=== PATIENT | male | born 1945 | race Caucasian/White ===

== ENCOUNTER 2017-03-26 07:26 | Outpatient (CLI) | payer MEDICARE ==
[2017-03-26 10:19] LABS: BASOPHILS % (AUTO) 0.6 %; EOSINOPHILS # (AUTO) 0.2 10^3/uL (0.0-0.7); EOSINOPHILS % (AUTO) 5.5 %; HCT - HEMATOCRIT 38.1 % (42.0-52.0); HGB - HEMOGLOBIN 12.8 g/dL (14.0-18.0); LYMPHOCYTES # (AUTO) 1.5 10^3/uL (1.5-3.5); LYMPHOCYTES % (AUTO) 36.6 %; MEAN CORPUSCULAR HEMOGLOBIN 32.7 pg (27.0-31.0); MEAN CORPUSCULAR HGB CONC 33.7 g/dL (32.0-36.0); MEAN CORPUSCULAR VOLUME 97.2 fL (80.0-94.0); MEAN PLATELET VOLUME 7.8 fL (7.4-11.4); MONOCYTES # (AUTO) 0.6 10^3/uL (0.0-1.0); MONOCYTES % (AUTO) 14.4 %; NEUTROPHILS # (AUTO) 1.7 10^3/uL (1.5-6.6); NEUTROPHILS % (AUTO) 42.9 %; RED BLOOD COUNT 3.92 10^6/uL (4.70-6.10); RED CELL DISTRIBUTION WIDTH 13.4 % (12.0-15.0)
[2017-03-26 10:39] LABS: CHOL/HDL RATIO 5.8 (<5.0); CHOLESTEROL 306 mg/dL; HDL CHOLESTEROL 53 mg/dL; LDL/HDL RATIO 4.4 (<3.6); TRIGLYCERIDES 88 mg/dL; VLDL CHOLESTEROL 18 mg/dL
== END 2017-03-26 07:27 | disposition home or self-care (01) ==
LOC: LAB.F 07:26
PROVIDERS: ATTEND Internal Medicine
DX: E78.2 Mixed hyperlipidemia (principal); Z79.899 Other long term (current) drug therapy
CPT/HCPCS: 36415; 80061; 85025

== ENCOUNTER 2017-04-24 07:04 | Outpatient (CLI) | payer MEDICARE ==
[2017-04-24 12:24] VITALS: BP 152/82
--- NOTE | 2017-04-26 07:20 | CARDIAC PROCEDURE NOTE ---
DATE OF SERVICE: INDICATION: A 71-year-old male with known coronary artery disease many years post PTCA. Intolerant to statins. PROCEDURE: The patient was exercised in the standard fashion for about 3 minutes beyond predicted anita e. He experienced fatigue and dyspnea, but no chest, neck, arm, or jaw pain. He had no diagnostic ST or T wave changes. He did have a slight increase in the number of PVCs during exercise and he had 1 v entricular couplet, but no complex ectopy was noted. His blood pressure response was fairly flat duri ng exercise and then rebounded with somewhat hypertensive pressure early in recovery. He had heart re sponse to just shy of 85% maximum predicted heart rate and had an extremely rapid recovery within 15- 30 seconds. IMPRESSION: Non-diagnostic treadmill performed for left ventricular echocardiographic imaging. See ca rdiology interpretation for details. JOB #: [id number] EXT JOB #:[id number]
== END 2017-04-24 07:05 | disposition home or self-care (01) ==
LOC: DI 07:04
PROVIDERS: ATTEND Internal Medicine
DX: I25.10 Atherosclerotic heart disease of native coronary artery without angina pectoris (principal); I47.1 Supraventricular tachycardia; Z98.61 Coronary angioplasty status
CPT/HCPCS: 93350

== ENCOUNTER 2018-05-02 07:32 | Outpatient (CLI) | payer MEDICARE ==
[2018-05-02 11:29] LABS: BASOPHILS % (AUTO) 0.6 %; EOSINOPHILS # (AUTO) 0.3 10^3/uL (0.0-0.7); HGB - HEMOGLOBIN 13.3 g/dL (14.0-18.0); LYMPHOCYTES # (AUTO) 1.6 10^3/uL (1.5-3.5); LYMPHOCYTES % (AUTO) 30.5 %; MEAN CORPUSCULAR HEMOGLOBIN 33.1 pg (27.0-31.0); MEAN CORPUSCULAR HGB CONC 34.1 g/dL (32.0-36.0); MEAN CORPUSCULAR VOLUME 97.1 fL (80.0-94.0); MEAN PLATELET VOLUME 7.8 fL (7.4-11.4); MONOCYTES # (AUTO) 0.6 10^3/uL (0.0-1.0); MONOCYTES % (AUTO) 11.6 %; NEUTROPHILS # (AUTO) 2.6 10^3/uL (1.5-6.6); NEUTROPHILS % (AUTO) 51.3 %; PLT - PLATELET COUNT 212 10^3/uL (130-450); RED BLOOD COUNT 4.01 10^6/uL (4.70-6.10); RED CELL DISTRIBUTION WIDTH 13.4 % (12.0-15.0); WHITE BLOOD COUNT 5.2 x10^3/uL (4.8-10.8)
[2018-05-02 11:43] LABS: ALBUMIN 3.7 g/dL (3.2-5.5); ALBUMIN/GLOBULIN RATIO 1.1 (1.0-2.2); ALKALINE PHOSPHATASE 64 IU/L (42-121); ALT ALANINE AMINOTRANSFERASE 19 IU/L (10-60); AST ASPARTATE AMINOTRANSFERASE 21 IU/L (10-42); BILIRUBIN,TOTAL 0.9 mg/dL (0.2-1.0); BUN - BLOOD UREA NITROGEN 29 mg/dL (6-20); CARBON DIOXIDE - CO2 25 mmol/L (21-32); CHLORIDE 106 mmol/L (101-111); CHOL/HDL RATIO 6.5 (<5.0); CHOLESTEROL 314 mg/dL; CREATININE 1.3 mg/dL (0.6-1.2); GFR - MDRD 54 (>89); GLUCOSE 103 mg/dL (70-100); HDL CHOLESTEROL 48 mg/dL; LDL CHOLESTEROL,CALCULATED 244 mg/dL; LDL/HDL RATIO 5.1 (<3.6); SODIUM 137 mmol/L (135-145); VLDL CHOLESTEROL 22 mg/dL
== END 2018-05-02 07:33 | disposition home or self-care (01) ==
LOC: LAB.F 07:32
PROVIDERS: ATTEND Internal Medicine
DX: Z00.00 Encounter for general adult medical examination without abnormal findings (principal); D63.1 Anemia in chronic kidney disease; N18.9 Chronic kidney disease, unspecified; I25.10 Atherosclerotic heart disease of native coronary artery without angina pectoris; E78.5 Hyperlipidemia, unspecified
CPT/HCPCS: 36415; 80053; 80061; 83721; 84153; 85025

== ENCOUNTER 2019-08-11 09:55 | Outpatient (CLI) | payer MEDICARE ==
[2019-08-11 10:16] LABS: BASOPHILS % (AUTO) 0.5 %; EOSINOPHILS # (AUTO) 0.2 10^3/uL (0.0-0.7); EOSINOPHILS % (AUTO) 3.9 %; HGB - HEMOGLOBIN 13.4 g/dL (14.0-18.0); LYMPHOCYTES # (AUTO) 1.4 10^3/uL (1.5-3.5); LYMPHOCYTES % (AUTO) 31.8 %; MEAN CORPUSCULAR HEMOGLOBIN 31.8 pg (27.0-31.0); MEAN CORPUSCULAR HGB CONC 32.7 g/dL (32.0-36.0); MEAN CORPUSCULAR VOLUME 97.2 fL (80.0-94.0); MONOCYTES # (AUTO) 0.6 10^3/uL (0.0-1.0); MONOCYTES % (AUTO) 12.6 %; NEUTROPHILS # (AUTO) 2.2 10^3/uL (1.5-6.6); PLT - PLATELET COUNT 194 10^3/uL (130-450); RED BLOOD COUNT 4.22 10^6/uL (4.70-6.10); RED CELL DISTRIBUTION WIDTH 12.8 % (12.0-15.0); WHITE BLOOD COUNT 4.4 x10^3/uL (4.8-10.8)
[2019-08-11 10:30] LABS: CALCIUM 9.4 mg/dL (8.5-10.3); CREATININE 1.2 mg/dL (0.6-1.2)
== END 2019-08-11 09:56 | disposition home or self-care (01) ==
LOC: LAB 09:55
PROVIDERS: ATTEND Registered Nurse
DX: Z01.818 Encounter for other preprocedural examination (principal); I25.10 Atherosclerotic heart disease of native coronary artery without angina pectoris; G47.30 Sleep apnea, unspecified
CPT/HCPCS: 36415; 80048; 85025; 93005

== ENCOUNTER 2019-08-12 12:12 | Day surgery (SDC) | payer MEDICARE ==
[2019-08-12] MEDS ORDERED: LACTATED RINGERS 1,000 ML IV ONE ×2 (12:21→14:46)
--- NOTE | 2019-08-12 12:53 | ANESTHESIA ---
Pre-Anesthesia VS, & Labs - Diagnosis umblical hernia - Procedure umblical hernia repair Vital Signs: Temp Pulse Resp BP Pulse Ox 36 C L 64 16 149/68 H 99 08/12/19 12:21 08/12/19 12:21 08/12/19 12:21 08/12/19 12:21 08/12/19 12:21 Height 6 ft 4 in Weight (kg) 100.9 kg Home Medications and Allergies Home Medications: Ambulatory Orders Aspirin [Aspirin EC] 81 mg PO DAILY 08/06/19 Multivitamin [Daily Multiple Vitamin] 1 each PO BID 08/06/19 Nitroglycerin [Nitrostat] 0.4 mg SL Q5MIN PRN 08/06/19 Rosuvastatin Calcium 5 mg PO DAILY 08/06/19 Turmeric Root Extract [Turmeric] 500 mg PO DAILY 08/06/19 Vitamin B Complex 1 each PO DAILY 08/06/19 Aspirin [Aspirin EC] 81 mg PO DAILY 08/06/19 Multivitamin [Daily Multiple Vitamin] 1 each PO BID 08/06/19 Nitroglycerin [Nitrostat] 0.4 mg SL Q5MIN PRN 08/06/19 Rosuvastatin Calcium 5 mg PO DAILY 08/06/19 Turmeric Root Extract [Turmeric] 500 mg PO DAILY 08/06/19 Vitamin B Complex 1 each PO DAILY 08/06/19 Allergies/Adverse Reactions: Allergies Allergy/AdvReac Type Severity Reaction Status Date / Time No Known Drug Allergies Allergy Verified 08/06/19 15:13 Anes History & Medical History - Anesthetic History Anesthesia Complications: reports: No previous complications Family history of Anesthesia Complications: Denies Family history of Malignant Hyperthermia: Denies - Medical History Cardiovascular: reports: High cholesterol, Coronary artery disease Pulmonary: reports: Sleep apnea, CPAP use Gastrointestinal: reports: GERD Urinary: reports: None Neuro: reports: None Musculoskeletal: reports: None Endocrine/Autoimmune: reports: None Blood Disorders: reports: None Skin: reports: None Smoking Status: Never smoker Psychosocial: reports: No issues indicated - Surgical History General: Colonoscopy Eyes Ears Nose Throat (EENT): Tonsil/Adenoidectomy Cardiothoracic: Angioplasty (angioplasty 1987) Orthopedic: Shoulder arthroplasty Exam General: Alert, Oriented x3, Cooperative, No acute distress Dental: WNL Mouth Openin Fingerbreadth Neck Mobility: Normal Mallampati classification: II Thyromental Distance: 4-6 cm Respiratory: Lungs clear, Normal breath sounds, No respiratory distress, No accessory muscle use Cardiovascular: Regular rate, Normal S1, Normal S2, No murmurs Abdomen: Normal bowel sounds, Soft, No tenderness, No hepatospenomegaly, No masses Extremities: No clubbing, No cyanosis, No edema, Normal pulses, No tenderness/swelling Neurological: Normal gait, Normal speech, Strength at 5/5 X4 ext, Normal tone, Sensation intact, Cranial nerves 3-12 NL, Reflexes 2+ Cognitive Status: Within normal limits Plan Anesthesia Type: General Consent for Procedure(s) Verified and Reviewed: Yes Code Status: Attempt Resuscitation ASA classification: 2-Mild systemic disease Is this case an emergency?: No
[2019-08-12] MEDS ORDERED: ceFAZolin 1 GM VIAL ONE (13:12)
[2019-08-12] MEDS ORDERED: SODIUM CHLORIDE 0.9% 10 ML ONE (13:12)
[2019-08-12] MEDS ORDERED: LIDOCAINE MPF 1%-EPI 1:200000 30 ML VIAL ONE (13:13)
[2019-08-12] MEDS ORDERED: BUPIVACAINE 0.5% PF 30 ML VIAL ONE (13:13)
[2019-08-12] MEDS ORDERED: LIDOCAINE 1%-EPI 1:100000 30 ML MDV SUBQ ONE ×2 (14:36)
[2019-08-12] MEDS ORDERED: BUPIVACAINE 0.5% PF 30 ML VIAL SUBQ ONE ×2 (14:36)
[2019-08-12] MEDS ORDERED: ACETAMINOPHEN 325 MG TABLET PO PRN (14:51)
[2019-08-12] MEDS ORDERED: IBUPROFEN 600 MG TABLET PO PRN (14:51)
[2019-08-12] MEDS ORDERED: ONDANSETRON 4 MG/2 ML VIAL IVP PRN (14:51)
[2019-08-12] MEDS ORDERED: oxyCODONE 5 MG TABLET PO PRN (14:51)
--- NOTE | 2019-08-12 14:51 | OPERATIVE REPORT ---
Operative Report - General Procedure Date: 08/12/19 Planned Procedure: Umbilical Hernia Repair Pre-Op Diagnosis: Umbilical Hernia Procedure Performed: Umbilical Hernia Repair Post Op Diagnosis: Umbilical Hernia - Procedure Note Primary Surgeon: Johanne Anesthesia Provider: ZAKI Pfeiffer; ZAKI Marie Anesthesia Technique: General LMA, Local Estimated Blood Loss (mL): 10 Findings: 3 cm umbilical defect containing perperitoneal fat Complications: None apparent - Other Other Information/Narrative: After obtaining informed consent, the patient is brought to the operating room and placed in the supine position on the operating table. Following successful induction of general anesthesia, appropriate padding of all bony prominences, and placement of appropriate monitors, the abdomen was prepped and draped in the standard surgical fashion. A timeout was held per scope protocol. All elements of the surgical safety checklist were observed before, during, and after the procedure. Following infiltration with local anesthetic to create a field block, an incision was created directly through the umbilicus and carried down through the skin to reveal the hernia sac below. The hernia sac was carefully dissected free from the overlying dermis and underlying fascia using sharp dissection and Bovie cautery. Once the defect was clearly defined, it was determined to be approximately 3 cm in diameter. The peritoneum covered the contents of the hernia sac and was allowed to remain intact in the abdominal cavity. We selected an 6 cm Ventralux patch for repair of the defect.The patch was briefly dipped in Ancef containing solution and then deployed into the defect. It was straightened and flattened in the preperitoneal space. The anterior tags were then trimmed to an appropriate length and sewn to the fascial edges of the defect. The wound was then checked for hemostasis and irrigated with warm saline solution. The umbilicus was reconstructed with 0 Vicryl suture and Monocryl stitches were placed in the skin. All sponge, needle, and instrument counts were correct at the conclusion of the case. The patient was allowed to awake from anesthesia without difficulty and taken to the postanesthesia care unit in good condition.
[2019-08-12 15:26] VITALS: BP 132/59
[2019-08-12] MEDS ORDERED: oxyCODONE 5 MG TABLET ONE (15:40)
== END 2019-08-12 12:13 | disposition home or self-care (01) ==
LOC: SDS 12:12
PROVIDERS: ATTEND Surgery
PROC: 0WUF0JZ Supplement Abdominal Wall with Synthetic Substitute, Open Approach (ICD-10-PCS; principal; 2019-08-12 13:45)
DX: K42.0 Umbilical hernia with obstruction, without gangrene (principal); I25.10 Atherosclerotic heart disease of native coronary artery without angina pectoris; E78.00 Pure hypercholesterolemia, unspecified; G47.33 Obstructive sleep apnea (adult) (pediatric); N18.9 Chronic kidney disease, unspecified; D63.1 Anemia in chronic kidney disease; K21.9 Gastro-esophageal reflux disease without esophagitis; M17.11 Unilateral primary osteoarthritis, right knee; Z79.82 Long term (current) use of aspirin; Z98.61 Coronary angioplasty status
CPT/HCPCS: 49585; A9270; C1781; J7120

== ENCOUNTER 2019-09-22 15:17 | Outpatient (CLI) | payer MEDICARE ==
[2019-09-22 17:47] LABS: BASOPHILS # (AUTO) 0.1 10^3/uL (0.0-0.1); BASOPHILS % (AUTO) 0.8 %; EOSINOPHILS # (AUTO) 0.2 10^3/uL (0.0-0.7); EOSINOPHILS % (AUTO) 3.5 %; HGB - HEMOGLOBIN 13.3 g/dL (14.0-18.0); LYMPHOCYTES # (AUTO) 1.8 10^3/uL (1.5-3.5); LYMPHOCYTES % (AUTO) 29.7 %; MEAN CORPUSCULAR HEMOGLOBIN 33.1 pg (27.0-31.0); MEAN CORPUSCULAR HGB CONC 33.6 g/dL (32.0-36.0); MEAN CORPUSCULAR VOLUME 98.5 fL (80.0-94.0); MEAN PLATELET VOLUME 10.4 fL (7.4-11.4); MONOCYTES # (AUTO) 0.8 10^3/uL (0.0-1.0); MONOCYTES % (AUTO) 12.7 %; NEUTROPHILS # (AUTO) 3.2 10^3/uL (1.5-6.6); NEUTROPHILS % (AUTO) 53.1 %; PLT - PLATELET COUNT 173 10^3/uL (130-450); RED BLOOD COUNT 4.02 10^6/uL (4.70-6.10); RED CELL DISTRIBUTION WIDTH 12.7 % (12.0-15.0); WHITE BLOOD COUNT 6.1 x10^3/uL (4.8-10.8)
== END 2019-09-22 15:18 | disposition home or self-care (01) ==
LOC: LAB.S 15:17
PROVIDERS: ATTEND Orthopaedic Surgery
DX: Z01.812 Encounter for preprocedural laboratory examination (principal); G56.01 Carpal tunnel syndrome, right upper limb
CPT/HCPCS: 36415; 85025

== ENCOUNTER 2019-09-30 07:08 | Day surgery (SDC) | payer MEDICARE ==
[2019-09-30] MEDS ORDERED: LACTATED RINGERS 1,000 ML IV ONE (07:14)
--- NOTE | 2019-09-30 08:03 | ANESTHESIA ---
Pre-Anesthesia VS, & Labs - Diagnosis R CTS - Procedure R CTR Vital Signs: Temp Pulse Resp BP Pulse Ox 35.7 C L 61 18 123/69 97 09/30/19 07:17 09/30/19 07:17 09/30/19 07:17 09/30/19 07:17 09/30/19 07:17 Height 6 ft 4 in Weight (kg) 101 kg - NPO >8 hours Last Fluid Intake: H20 0530 - Lab Results Lab results reviewed: Yes Home Medications and Allergies Aspirin [Aspirin EC] 81 mg PO DAILY 08/06/19 Multivitamin [Daily Multiple Vitamin] 1 each PO BID 08/06/19 Nitroglycerin [Nitrostat] 0.4 mg SL Q5MIN PRN 08/06/19 Rosuvastatin Calcium 5 mg PO DAILY 08/06/19 Turmeric Root Extract [Turmeric] 500 mg PO DAILY 08/06/19 Vitamin B Complex 1 each PO DAILY 08/06/19 Allergies/Adverse Reactions: Allergies Allergy/AdvReac Type Severity Reaction Status Date / Time No Known Drug Allergies Allergy Verified 08/06/19 15:13 Anes History & Medical History - Anesthetic History Anesthesia Complications: reports: No previous complications Family history of Anesthesia Complications: Denies Family history of Malignant Hyperthermia: Denies - Medical History Cardiovascular: reports: High cholesterol, Coronary artery disease Pulmonary: reports: Sleep apnea, CPAP use Gastrointestinal: reports: GERD Urinary: reports: None Neuro: reports: None Musculoskeletal: reports: None Endocrine/Autoimmune: reports: None Blood Disorders: reports: None Skin: reports: None Smoking Status: Never smoker - Surgical History General: Colonoscopy Eyes Ears Nose Throat (EENT): Tonsil/Adenoidectomy Cardiothoracic: Angioplasty Orthopedic: Shoulder arthroplasty Exam General: Alert, Oriented x3, Cooperative Dental: WNL Mouth Openin Fingerbreadth Neck Mobility: Normal Mallampati classification: II Thyromental Distance: greater than 6 cm Respiratory: Lungs clear, Normal breath sounds, No respiratory distress Cardiovascular: Regular rate Neurological: Normal speech Mental/Cognitive Status: Alert/Oriented X3, Normal for patient Cognitive Status: Within normal limits Plan Anesthesia Type: MAC Consent for Procedure(s) Verified and Reviewed: Yes Code Status: Attempt Resuscitation ASA classification: 2-Mild systemic disease Is this case an emergency?: No
[2019-09-30] MEDS: LIDOCAINE-MPF 1% 30 ML VIAL ONE ×2 (08:44→09:00)
[2019-09-30] MEDS: BUPIVACAINE 0.5% PF 30 ML VIAL ONE ×2 (08:44→09:00)
[2019-09-30] MEDS ORDERED: PROPOFOL 200 MG/20 ML VIAL IVP ONE ×2 (08:52)
[2019-09-30] MEDS ORDERED: MIDAZOLAM 2 MG/2 ML VIAL IVP ONE ×2 (08:52)
[2019-09-30] MEDS ORDERED: LIDOCAINE-MPF 2% 5 ML VIAL IM ONE ×2 (08:52)
[2019-09-30] MEDS ORDERED: fentaNYL 100 MCG/2 ML VIAL IVP ONE ×2 (08:52)
[2019-09-30] MEDS ORDERED: HYDROcod/ACETAM 5/325 MG TABLET PO PRN (09:31)
[2019-09-30] MEDS ORDERED: HYDROmorphone 0.5 MG/0.5 ML SYRINGE IVP PRN (09:31)
--- NOTE | 2019-09-30 09:36 | OPERATIVE REPORT ---
Operative Report - General Procedure Date: 09/30/19 Planned Procedure: Right carpal tunnel release Pre-Op Diagnosis: Right carpal tunnel syndrome Procedure Performed: Right carpal tunnel release Post Op Diagnosis: Same - Procedure Note Primary Surgeon: Stacie Hernandez MD Anesthesia Provider: Babita Stallings CRNA IV Fluids (mL): 300 (ml) Estimated Blood Loss (mL): 1 Complications: None
[2019-09-30 10:01] VITALS: BP 102/54
--- NOTE | 2019-09-30 10:09 | OPERATIVE REPORT ---
DATE OF SERVICE: 09/30/2019 Physician: Manish Hernandez MD PREOPERATIVE DIAGNOSIS: Right carpal tunnel syndrome. POSTOPERATIVE DIAGNOSIS: Right carpal tunnel syndrome. PROCEDURE PERFORMED: Right carpal tunnel release. SURGEON: Manish Hernandez MD ANESTHESIA: Local plus MAC. DESCRIPTION OF PROCEDURE: Patient was taken to the operating room on the morning of 09/30/2019 where he had a local anesthesia performed. A total of 7 mL of 1:1 ratio of 1% lidocaine and 0.5% Marcaine without epinephrine was then injected for local field block in the proximal palm along the fourth ra y. We then placed the thigh and arm pneumatic tourniquet around the proximal forearm of the right up per extremity, then prepped and draped the hand free in the usual fashion for our procedure. After 3 0 seconds of gravity exsanguination of the limb and using an Esmarch bandage to complete the exsangui nation, we then inflated the tourniquet to 250 mmHg pressure. We then proceeded to make a curvilinea r longitudinal skin incision overlying the proximal palm in alignment with the fourth ray. The skin and superficial fascial layers were incised. We then made a hari into the deep transverse carpal lig ament. We could identify the median nerve, which was quite flattened from the pressure within the ca rpal tunnel. We then proceeded to complete the transection of the deep transverse carpal ligament us ing a hemostat to protect the contents of the carpal tunnel and then sharply transecting the ligament using a #15 blade. We completed the transection proximally using tenotomy scissors. Once the carpa l tunnel was released, we could see a venous blush occurring in the median nerve. Median nerve gross ly appeared to be intact throughout after our release. We then irrigated the wound thoroughly with s brigid, then closed the skin incision using interrupted horizontal mattress stitches of 4-0 nylon sutu re. We then washed the hand and applied Xeroform gauze, 4 x 4's, 3-inch Jordi, and a wrist cock-up b race was then applied to the extremity. Tourniquet was released as we completed our procedure and wa s dressing the wound. Patient then taken to the recovery room in satisfactory condition. ESTIMATED BLOOD LOSS: 1 mL REPLACEMENT: 300 mL of crystalloid. INTRAOPERATIVE COMPLICATIONS: None. PLAN: Patient may be up as tolerated. We will keep the wrist brace and dressings on until our next visit. Patient tentatively wants to proceed with a left carpal tunnel release in 1 week's time, on 0 10/07/2019. TD: 09/30/2019 09:44
== END 2019-09-30 07:09 | disposition home or self-care (01) ==
LOC: SDS 07:08
PROVIDERS: ATTEND Orthopaedic Surgery
PROC: 01N50ZZ Release Median Nerve, Open Approach (ICD-10-PCS; principal; 2019-09-30 08:15)
DX: G56.03 Carpal tunnel syndrome, bilateral upper limbs (principal); I25.10 Atherosclerotic heart disease of native coronary artery without angina pectoris; G47.30 Sleep apnea, unspecified; K21.9 Gastro-esophageal reflux disease without esophagitis; E78.00 Pure hypercholesterolemia, unspecified
CPT/HCPCS: 64721; J7120

== ENCOUNTER 2019-10-07 07:07 | Day surgery (SDC) | payer MEDICARE ==
[2019-10-07] MEDS ORDERED: LACTATED RINGERS 1,000 ML IV ONE (07:12)
[2019-10-07] MEDS ORDERED: LIDOCAINE 1%-EPI 1:100000 20 ML MDV ONE (08:04)
[2019-10-07] MEDS ORDERED: BUPIVACAINE 0.5% PF 30 ML VIAL ONE (08:04)
--- NOTE | 2019-10-07 08:15 | ANESTHESIA ---
Pre-Anesthesia VS, & Labs - Diagnosis L CTS - Procedure L CTR Vital Signs: Temp Pulse Resp BP Pulse Ox 36 C L 61 18 147/76 H 100 10/07/19 07:16 10/07/19 07:16 10/07/19 07:16 10/07/19 07:16 10/07/19 07:16 Height 6 ft 4 in Weight (kg) 100 kg - NPO >8 hours Home Medications and Allergies Aspirin [Aspirin EC] 81 mg PO DAILY 08/06/19 Multivitamin [Daily Multiple Vitamin] 1 each PO BID 08/06/19 Nitroglycerin [Nitrostat] 0.4 mg SL Q5MIN PRN 08/06/19 Rosuvastatin Calcium 5 mg PO DAILY 08/06/19 Turmeric Root Extract [Turmeric] 500 mg PO DAILY 08/06/19 Vitamin B Complex 1 each PO DAILY 08/06/19 Allergies/Adverse Reactions: Allergies Allergy/AdvReac Type Severity Reaction Status Date / Time No Known Drug Allergies Allergy Verified 08/06/19 15:13 Anes History & Medical History - Anesthetic History Anesthesia Complications: reports: No previous complications Family history of Anesthesia Complications: Denies Family history of Malignant Hyperthermia: Denies - Medical History Cardiovascular: reports: High cholesterol, Coronary artery disease Pulmonary: reports: Sleep apnea, CPAP use Gastrointestinal: reports: GERD Urinary: reports: None Neuro: reports: None Musculoskeletal: reports: None Endocrine/Autoimmune: reports: None Blood Disorders: reports: None Skin: reports: None Smoking Status: Never smoker - Surgical History General: Colonoscopy Eyes Ears Nose Throat (EENT): Tonsil/Adenoidectomy Cardiothoracic: Angioplasty Orthopedic: Shoulder arthroplasty Exam General: Alert, Oriented x3, Cooperative Dental: WNL Mouth Openin Fingerbreadth Neck Mobility: Normal Mallampati classification: II Thyromental Distance: 4-6 cm Respiratory: Lungs clear, Normal breath sounds Cardiovascular: Regular rate Neurological: Normal speech Mental/Cognitive Status: Alert/Oriented X3, Normal for patient Cognitive Status: Within normal limits Plan Anesthesia Type: MAC Consent for Procedure(s) Verified and Reviewed: Yes Code Status: Attempt Resuscitation ASA classification: 2-Mild systemic disease Is this case an emergency?: No
[2019-10-07] MEDS ORDERED: CEFAZOLIN SODIUM IN 0.9 % NACL 2 GM/100 ML BAG IV ONE (08:28)
[2019-10-07] MEDS ORDERED: LIDOCAINE-MPF 2% 5 ML VIAL IM ONE (08:35)
[2019-10-07] MEDS ORDERED: PROPOFOL 200 MG/20 ML VIAL IVP ONE (08:35)
[2019-10-07] MEDS ORDERED: KETAMINE 500 MG/10 ML VIAL IVP ONE (08:35)
[2019-10-07] MEDS ORDERED: MIDAZOLAM 2 MG/2 ML VIAL IVP ONE (08:35)
[2019-10-07] MEDS ORDERED: ONDANSETRON 4 MG/2 ML VIAL IVP ONE (08:35)
[2019-10-07] MEDS ORDERED: LIDOCAINE 1%-EPI 1:100000 30 ML MDV SUBQ ONE (08:50)
[2019-10-07] MEDS ORDERED: BUPIVACAINE 0.5% PF 30 ML VIAL INFIL ONE ×2 (08:50)
[2019-10-07] MEDS ORDERED: HYDROcod/ACETAM 5/325 MG TABLET PO PRN (09:26)
[2019-10-07] MEDS ORDERED: ONDANSETRON 4 MG/2 ML VIAL IVP PRN (09:26)
[2019-10-07] MEDS ORDERED: HYDROmorphone 0.5 MG/0.5 ML SYRINGE IVP PRN (09:26)
--- NOTE | 2019-10-07 09:30 | OPERATIVE REPORT ---
Operative Report - General Procedure Date: 10/07/19 Planned Procedure: Left carpal tunnel release Pre-Op Diagnosis: Left carpal tunnel syndrome Procedure Performed: Left carpal tunnel release Post Op Diagnosis: Same - Procedure Note Primary Surgeon: Stacie Hernandez MD Anesthesia Provider: Alexandra Cheng CRNA Anesthesia Technique: Local, Moderate sedation IV Fluids (mL): 600 Estimated Blood Loss (mL): 5 Complications: None
[2019-10-07 09:47] VITALS: BP 125/71
--- NOTE | 2019-10-07 10:09 | OPERATIVE REPORT ---
DATE OF SERVICE: 10/07/2019 Physician: Manish Hernandez MD PREOPERATIVE DIAGNOSIS: Left carpal tunnel syndrome. POSTOPERATIVE DIAGNOSIS: Left carpal tunnel syndrome. PROCEDURE PERFORMED: Open left carpal tunnel release. SURGEON: Manish Hernandez MD ANESTHESIA: Local with MAC. DESCRIPTION OF PROCEDURE: Patient was taken to the operating room on the morning of 10/07/2019 where he was placed under a moderate sedation without any problems. After skin preparation, we injected a total of 10 mL of a 1:1 ratio of 0.5% Marcaine and 1% lidocaine without epinephrine on the palmar as pect of his hand and wrist overlying the fourth ray. We then prepped and draped the hand free in the usual fashion for the procedure. It should be noted the arm pneumatic tourniquet was placed to the left upper extremity prior to our prepping and draping. After about 15 seconds of gravity exsanguina tion, we then inflated the arm pneumatic tourniquet to 250 mmHg pressure. Making a curvilinear skin incision overlying the proximal fourth ray in the area of anesthesia, we di ssected down through the skin down to the superficial fascial layer. This layer was then transected with a 15 blade. A small hari was then made through the deep transverse carpal ligament. We then id entified the median nerve, which was quite compressed within the carpal tunnel. Using a hemostat to protect the contents of the carpal tunnel, we then transected about 90% of the visible deep transvers e carpal ligament. We then completed the transection of the deep transverse carpal ligament using te notomy scissors. Median nerve was then inspected after our release was completed. There was a venou s blush visible in our compressed median nerve. We irrigated the wound then with saline. We then cl osed the skin layer using horizontal mattress stitches of 4-0 nylon suture. We then dressed the woun d with Xeroform gauze, 4 x 4's, 3-inch Jordi as the tourniquet was released. We then applied a Velcr o wrist brace to the left upper extremity as well. Patient was then awoken from his anesthetic and t aken to the recovery room in satisfactory condition. ESTIMATED BLOOD LOSS: 5 mL REPLACEMENT: 300 mL crystalloid. INTRAOPERATIVE COMPLICATIONS: None. PLAN: Patient will be discharged when stable. Will followup in Orthopedic Clinic in about 10 days' time. TD: 10/07/2019 09:36
== END 2019-10-07 07:08 | disposition home or self-care (01) ==
LOC: SDS 07:07
PROVIDERS: ATTEND Orthopaedic Surgery
PROC: 01N50ZZ Release Median Nerve, Open Approach (ICD-10-PCS; principal; 2019-10-07 08:30)
DX: G56.02 Carpal tunnel syndrome, left upper limb (principal); E78.00 Pure hypercholesterolemia, unspecified; I25.10 Atherosclerotic heart disease of native coronary artery without angina pectoris; G47.30 Sleep apnea, unspecified; K21.9 Gastro-esophageal reflux disease without esophagitis; Z79.82 Long term (current) use of aspirin; Z79.899 Other long term (current) drug therapy
CPT/HCPCS: 64721; J0690; J7120

== ENCOUNTER 2022-10-31 18:43 | Outpatient (CLI) | payer MEDICARE ==
[2022-10-31 19:00] LABS: BASOPHILS % (AUTO) 0.4 %; EOSINOPHILS # (AUTO) 0.4 10^3/uL (0.0-0.7); EOSINOPHILS % (AUTO) 5.2 %; HCT - HEMATOCRIT 41.1 % (42.0-52.0); HGB - HEMOGLOBIN 13.5 g/dL (14.0-18.0); LYMPHOCYTES # (AUTO) 2.2 10^3/uL (1.5-3.5); LYMPHOCYTES % (AUTO) 31.5 %; MEAN CORPUSCULAR HEMOGLOBIN 32.5 pg (27.0-31.0); MEAN CORPUSCULAR HGB CONC 32.8 g/dL (32.0-36.0); MEAN PLATELET VOLUME 8.7 fL (7.4-11.4); MONOCYTES # (AUTO) 0.8 10^3/uL (0.0-1.0); MONOCYTES % (AUTO) 11.3 %; NEUTROPHILS # (AUTO) 3.7 10^3/uL (1.5-6.6); NEUTROPHILS % (AUTO) 51.5 %; PLT - PLATELET COUNT 212 10^3/uL (130-450); RED BLOOD COUNT 4.15 10^6/uL (4.70-6.10); RED CELL DISTRIBUTION WIDTH 12.7 % (12.0-15.0); WHITE BLOOD COUNT 7.1 x10^3/uL (4.8-10.8)
[2022-10-31 19:13] LABS: ALBUMIN 4.3 g/dL (3.2-5.5); ALBUMIN/GLOBULIN RATIO 1.4 (1.0-2.2); BILIRUBIN,TOTAL 1.1 mg/dL (0.2-1.0); CREATININE 1.3 mg/dL (0.6-1.2); POTASSIUM 4.4 mmol/L (3.5-5.0); TOTAL PROTEIN 7.4 g/dL (6.7-8.2)
== END 2022-10-31 18:44 | disposition home or self-care (01) ==
LOC: LAB 18:43
PROVIDERS: ATTEND Physician Assistant
DX: Z01.818 Encounter for other preprocedural examination (principal)
CPT/HCPCS: 36415; 80053; 85025

== ENCOUNTER 2023-08-08 13:10 | Outpatient (CLI) | payer MEDICARE ==
--- NOTE | 2023-08-08 14:01 | Sleep Patient Instructions ---
Sleep Center Visit Summary - Patient Visit Information Reason for Visit: Initial consultation to re-establish care - Patient Instructions Additional Instructions: You will continue with CPAP therapy with pressure set at 12 cmH2O. A supply prescription will be updated with your DME supplier. We ordering a new CPAP and the supplier will call to set this up with you. Please call once you have your new machine to make a followup in the sleep clinic. We encourage you to continue to try to lose weight. Please follow up with the sleep care office a month after you obtain your new device. - Clinic Information Contact: [facility] [address] [place] [address] [email or web address] T: [phone]
--- NOTE | 2023-08-08 14:08 | SLEEP CARE CONSULTATION ---
Information from patient questionnaire entered by Filiberto Bean. I have reviewed and concur with the information entered by Filiberto Bean. This document represents the service I personally performed and the decisions made by me, Kylie Cervantes ARNP. History of Present Illness Service Date and Time: 08/08/2023 1310 Reason for Visit: New patient, sleep apnea on CPAP therapy, Re-establish care Chief Complaint: reports: Snoring, Observed pauses in breathing, Other (UPDATE SUPPLIES) Usual bedtime: 10PM Time it takes to fall asleep: 5MINS Snores at night: No (not with CPAP) Sleeps alone due to snoring: No Number of times waking at night: 1 Reasons for waking at night: reports: Bathroom. denies: Choking, Gasping for air Toss, Turn, or Twitch while sleeping: No Recalls having dreams: No Usually gets out of bed at: 7AM Feels refreshed in the morning: Yes Morning headache: No Sleepy or fatigued during the day: No Ever fallen asleep while driving: Yes Takes day naps: No Prior sleep studies: Yes Year and Where: 2014 [facility] Additional HPI information: REGINALDO PARKER was previously diagnosed to have severe, AHI 44, obstructive sleep apnea-hypopnea syndrome and comes in today to re-establish care for CPAP therapy. - Parasomnia Symptoms Ever been unable to move upon waking from sleep: No Walks in sleep: No Ever acted out dreams in sleep: No Ever felt weak in the knees when startled or emotional: No Bothered by creepy, crawly, restless sensations in legs: No Problems with memory or concentration: No CPAP Compliance Data - Data Reviewed with Patient Average duration of nightly device use: 8 hours Compliance rate %: 100 (30/30 days used) Current pressure setting (cmH2O): 12 Average residual AHI: 2.6 Average large leak: 2 % Compliance data discussion: He has a Respironics System One CPAP. He states his gets his supplies when he needs them, no DME. He is using a nasal cushion mask, Mirage FX. He changes the cushion as needed and cleans it every 3 days. Subjective Patient concerns: denies: aerophagia, mask discomfort, air blowing in eyes, mask leak noise, condensation in mask/hose, nasal congestion, dry mouth, nose, throat, epistaxis Observed to snore while using device: No Current pressure setting perceived as: comfortable On therapy, patient: reports: sleeping better, awakening more refreshed, being more awake and alert during the day, more rested overall. denies: drowsiness while driving Initial Shannon Sleepiness Scale score: 0 (08/08/23) Past Medical History Past Medical History: reports: Coronary Heart Disease (Angioplasty 1987; 2 bypass placed in January 2023) Social History The patient's occupation is a SE. Patient is and lives in [place]. Have you smoked in the past 12 months: No Alcohol use: Yes Alcohol amount and frequency: VERY LITTLE BID A MONTH Caffeine use: No Family History Family history of sleep disordered breathing: Yes Family Hx Sleep Apnea: Father: Snoring, Sibling: Snoring, Grandparent: Snoring Allergies and Home Medications Known drug allergies: No Drug allergies reviewed: Yes Home medication list reviewed: Yes Allergy and home medication list: Allergies No Known Drug Allergies Allergy (Verified 08/07/23 15:30) Home Medications Medication Instructions Recorded Confirmed Last Taken Type Multivitamin [Daily Multiple 1 each PO BID 08/06/19 08/08/23 10/06/19 History Vitamin] Rosuvastatin Calcium 5 mg PO DAILY 08/06/19 08/08/23 10/06/19 History Aspirin [[place]az[place]] See Rx Instructions .ROUTE .COMPLEX 08/08/23 08/08/23 Unknown History Cholecalciferol (Vitamin D3) See Rx Instructions .ROUTE .COMPLEX 08/08/23 08/08/23 Unknown History [Vitamin D3] Gabapentin [Neurontin] See Rx Instructions .ROUTE .COMPLEX 08/08/23 08/08/23 Unknown History Metoprolol Succinate [Toprol Xl] See Rx Instructions .ROUTE .COMPLEX 08/08/23 08/08/23 Unknown History Review of Systems Cardiovascular: reports: irregular heart rate or pulse. denies: high blood pressure Gastrointestinal: denies: heartburn Neurological: denies: headaches Psychiatric: denies: anxiety, depression Ear/Nose/Throat: reports: nasal congestion, tonsillectomy (as a child) Immunologic: reports: sneezing Physical Exam Vital signs obtained and entered by: FILIBERTO Arreola MA Blood Pressure: 128/64 (LEFT ARM) Cuff size: regular Heart Rate: 96 O2 Saturation: 58 Height: 6 ft 3 in Weight: 223 lb Body Mass Index: 27.8 BMI Classification: Overweight Neck circumference: 16.5 Heart: irregular rhythm Lungs: clear bilaterally Impression and Plan 1. Obstructive Sleep Apnea-Hypopnea Syndrome, severe, with good treatment compliance and good apnea control. On CPAP therapy, the patient has better sleep quality and is more rested overall. His Respironics System One was setup in 2014 after his sleep study. The patients CPAP is over 5 years old and of reasonable use. In addition, it is starting to make louder noise, a sign of malfunction. Thus, the CPAP will be updated. The new CPAPs also have a better humidity system which could assist control of patients dryness symptoms. He also needs a DME supplier to get his machine and supplies. A DWO prescription will be made. Compliance guidelines for new device and follow up discussed. Patient's apnea severity and rationale for treatment to reduce apnea, improve sleep quality and reduce cardiovascular and cerebrovascular events was reviewed. I also reviewed the benefit of consistent device use of CPAP for hypertension and cardiac d isease. 2. Overweight, unspecified. Currently patients BMI is 27.8. Obesity increases the risk of apnea, CPAP pressure requirements and overall health risks especially cardiovascular and diabetes. Thus patient is advised to lose weight. * Continue CPAP pressure at 12 cmH2O * Transfer DME * Update machine * Update supply prescription * Notify me if snoring with mask or feeling that the pressure is too much or too little * Attempt to lose weight * Call this office if any problems using CPAP * Return for follow up one month after obtaining new device, or sooner if concerns arise Counseling Topics: Spare mask, Weight loss health impact Prescriptions: Auto CPAP, Device supplies Visit Type: In Office Time Spent with Patient (minutes): 32 Provider Statement: I spent 100% of the Face to Face Visit with the patient with greater than 50% spent counseling the patient and coordination of care.
[2023-08-08 14:10] VITALS: BP 128/64; O2SAT 58
== END 2023-08-08 13:11 | disposition home or self-care (01) ==
LOC: SC 13:10
PROVIDERS: ATTEND Nurse Practitioner Family
DX: G47.33 Obstructive sleep apnea (adult) (pediatric) (principal); E66.3 Overweight; Z68.27 Body mass index [BMI] 27.0-27.9, adult
CPT/HCPCS: 99203; G0463; 99212

== ENCOUNTER 2024-03-03 08:00 | Outpatient (CLI) | payer MEDICARE ==
--- NOTE | 2024-03-03 14:38 | XRAY Report ---
PROCEDURE: Finger(s) LT INDICATIONS: OSTEOARTHRITIS LEFT HAND TECHNIQUE: AP hand, 2 views of the first finger(s) acquired. COMPARISON: Hand radiograph dated 04/09/2019. FINDINGS: Bones: Osteoarthritic changes are noted throughout left hand more notably involving first CMC joint and first MCP joint. There is volar subluxation at first MCP joint. No acute fracture or dislocation. No suspicious bony lesions. Soft tissues: No suspicious soft tissue calcifications or masses. IMPRESSION: Moderate left thumb osteoarthritis. No acute fracture or dislocation. Volar subluxation at first MCP joint. Reviewed by: Mane Ku MD on 03/03/2024 2:36 PM PDT Approved by: Mane Ku MD on 03/03/2024 2:36 PM PDT Station ID: [id number]
--- NOTE | 2024-03-04 07:28 | XRAY Report ---
PROCEDURE: Wrist 3+V LT INDICATIONS: PAIN IN LEFT WRIST TECHNIQUE: 3 views of the wrist were acquired. COMPARISON: Bilateral hand radiographs dated 04/09/2019. FINDINGS: Bones: No acute fractures or dislocations. Interval progression of moderate degenerative changes of the left wrist. Joint space narrowing of the radiocarpal joint. There appears to be new widening of the scapholunate interval. However, this was not well visualized on the previous study given position ing for imaging of the hands. Progression of degenerative changes of the distal radioulnar joint. Deg enerative changes of the first carpometacarpal joint and triscaphe joint. Subchondral lucencies appea r more pronounced in the distal ulna and lunate. No suspicious bony lesions. Soft tissues: No suspicious soft tissue calcifications or masses. IMPRESSION: No acute bony abnormality. Interval progression of moderate polyarticular degenerative changes of the left wrist as described ab ove. There is also possible new widening of the scapholunate interval which may represent sequela of remote injury of the scapholunate ligament. If there is persistent clinical concern for internal soft tissue derangement, further evaluation with MRI can be considered. Reviewed by: Reagan Lindsay MD on 03/04/2024 7:26 AM PDT Approved by: Reagan Lindsay MD on 03/04/2024 7:26 AM PDT Station ID: [id number]
== END 2024-03-03 23:59 | disposition home or self-care (01) ==
LOC: DI.S 08:00
PROVIDERS: ATTEND Registered Nurse
DX: M18.12 Unilateral primary osteoarthritis of first carpometacarpal joint, left hand (principal); M19.042 Primary osteoarthritis, left hand; S63.112A Subluxation of metacarpophalangeal joint of left thumb, initial encounter; M19.032 Primary osteoarthritis, left wrist

== ENCOUNTER 2024-05-31 08:00 | Outpatient (CLI) | payer MEDICARE ==
--- NOTE | 2024-05-31 13:50 | XRAY Report ---
PROCEDURE: Elbow 3+V RT INDICATIONS: RIGHT ELBOW CONTUSION TECHNIQUE: 4 views of the elbow were acquired. COMPARISON: None. FINDINGS: Bones: No fractures or dislocations. Moderate osteophyte arising from the olecranon. No suspicious bony lesions. Soft tissues: Small effusion. No suspicious soft tissue calcifications or masses. IMPRESSION: 1.No acute bony abnormality; however, there is a small elbow joint effusion. If pain persists with co nservative management, consider repeat radiographs in 10-14 days or cross-sectional imaging. 2.Moderate osteophyte arising from the olecranon. Reviewed by: Zara Leigh MD on 05/31/2024 12:48 PM DAYDAY Approved by: Zara Leigh MD on 05/31/2024 12:48 PM DAYDAY Station ID: [id number]
== END 2024-05-31 23:59 | disposition home or self-care (01) ==
LOC: DI.S 08:00
PROVIDERS: ATTEND Physician Assistant Medical
DX: M25.421 Effusion, right elbow (principal); M25.721 Osteophyte, right elbow; S50.01XA Contusion of right elbow, initial encounter